=== PATIENT | male | born 1950 | race Caucasian/White ===

== ENCOUNTER 2022-09-10 17:06 | Emergency (ER) | payer MEDICARE, SELFPAY ==
[2022-09-10 17:09] VITALS: BP 198/98; PULSE 62; RESP 16; TEMP 36.6; O2SAT 99
--- NOTE | 2022-09-10 18:02 | XRR_ITS ---
PROCEDURE INFORMATION: Exam: XR Left Shoulder Exam date and time: 09/10/2022 6:10 PM Age: 72 years old Clinical indication: Injury or trauma; Fall; Blunt trauma (contusions or hematomas); Shoulder; Left; Injury date: Tuesday TECHNIQUE: Imaging protocol: Radiologic exam of the Left shoulder. Views: 2 or more views. COMPARISON: No relevant prior studies available. FINDINGS: Bones/joints: Severe degenerative changes left acromioclavicular joint and moderate to severe degenerative changes left glenohumeral joint are noted. Probable osteochondral body is noted superior to the left acromioclavicular joint. There is no acute fracture or dislocation. The acromioclavicular joint alignment is appropriate. The subacromial joint space is well-preserved. The glenohumeral joint is unremarkable. No calcific tendinopathy. The visualized ribs are intact. Lungs: The visualized lung apex is clear. Soft tissues: Normal. XR/XR shoulder LT min 2V* [id number] IMPRESSION: No acute bony abnormality.
--- NOTE | 2022-09-10 18:42 | W.ED.EXTPRO ---
HPI - Extremity Problem General: Chief complaint: Extremity Injury, Upper Stated complaint: left shoulder injury Time Seen by Provider: 09/10/22 18:15 Source: patient History of Present Illness: 72-year-old gentleman who slipped on the ice 4 days ago, landing on point of his left shoulder. He had had some shoulder pain that seem to be improving. This afternoon, he fell again over his dog, and had intense pain over the left shoulder. He is unable to lift his arm under its own power, but can lift his arm with the other hand. It had been hurting him at night prior, but was much worse after this new injury today. No history of diabetes. No fever. He does have a history of high blood pressure. Pain is currently only with movement MD Complaint: extremity pain and joint pain Onset (ago): day(s) Pain Consistency: constant Location: left and upper extremity Radiation: distal Exacerbating factors: range of motion Associated symptoms: Deny arthralgias, chest pain, fever(s), rash or short of breath Context: recent travel Review of Systems Const: Denies: fever(s) ENMT: Denies: throat pain Card: Denies: chest pain or palpitations Resp: Denies: dyspnea, productive cough or non-productive cough GI: Denies: abdominal pain Musc: Reports: extremity pain; Denies: neck pain Skin/Breast: Denies: rash Physical Exam Const: COMMON NORMALS: no acute distress and alert GENERAL APPEARANCE: cooperative; not ill appearing and not frail appearing HENMT: COMMON NORMALS: normocephalic, atraumatic and Normal external nose present HEAD & SCALP: normocephalic and atraumatic NOSE: Normal external nose present Eye: COMMON NORMALS: Equal, round and reactive pupils present and EOMs intact bilaterally PUPIL: Yes Equal, round and reactive pupils present Neck/C-Spine: GENERAL: Yes trachea midline Chest: CHEST: Yes Symmetrical chest wall rise Resp: COMMON NORMALS: normal respiratory effort, No use of accessory muscles and clear to auscultation bilaterally AUSCULTATION: clear to auscultation bilaterally Cardio: COMMON NORMALS: regular rate and regular rhythm RATE: regular rate RHYTHM: regular rhythm GI: COMMON NORMALS: Normal to inspection, nondistended, normoactive bowel sounds present Extremity: NARRATIVE EXTREMITY EXAM: Examination of the left upper extremity reveals no deformity. There are some tenderness over the rotator cuff footprint. Minimal joint line tenderness. There is pain with movement of the shoulder. Less pain with passive range of motion. Positive drop arm test. Pain with internal rotation. Neuro: LUAN COMA SCALE: document [facility] findings Luan coma scale eye opening: Spontaneous [place] coma scale verbal response: Orientated [place] coma scale motor response: Obey commands [place] coma scale total score: 15 SENSORIUM/ORIENTATION: Yes alert SENSORY EXAM: Yes extremities (Normal) Skin: COMMON NORMALS: no wounds Course Vital Signs: Vital signs: Vital Signs Temperature 97.9 F 09/10/22 17:09 Pulse Rate 88 09/10/22 18:59 Respiratory Rate 16 09/10/22 18:59 Blood Pressure 152/78 09/10/22 18:59 Pulse Oximetry 100 09/10/22 18:59 Oxygen Delivery Me thod 09/10/22 17:09 MDM - Extremity (Nontraumatic) Medical Decision Making X-ray reveals no acute bony abnormality. There is significant AC joint arthritis and glenohumeral joint arthritis. This patient likely lost his cuff given his positive drop arm test. To be placed in a sling for comfort and asked to follow-up with his primary care physician back home in [place]. Lab Data Radiology Impressions Shoulder X-Ray 09/10/22 18:02 IMPRESSION: No acute bony abnormality. Discharge Plan Discharge Patient Disposition: Home Clinical Impression: Contusion of left shoulder, Osteoarthritis of left shoulder, Unspecified injury of muscle(s) and tendon(s) of the rotator cuff of left shoulder, initial encounter Condition: Stable Prescriptions: New hydrocodone-acetaminophen 5-325 mg tablet 1 tab PO Q8H PRN (Reason: pain) Qty: 7 0RF Medrol (Jin) 4 mg tablets,dose pack See Rx Instructions .ROUTE .COMPLEX Qty: 21 0RF Rx Instructions: orally per package directions Discharge Orders: Discharge ED (Routine); Ordered 09/10/22 Ordered By: Abelino Fernandez Discharge Diet: Advance as tolerated Discharge Activity: Increase activity as tolerated Patient Instructions: Opioid Safety, Pain Management Activity Restrictions/Additional Instructions: Stay in sling for comfort no longer than 5 days. You most likely have a significant rotator cuff injury. Medications as directed. Follow up with your doctor when you return home. Return for chest pain, shortness of breath, fever, any other concerns. Coding Level of Care Code ED Voice Teacher for Silvino Almanza
[2022-09-10 18:59] VITALS: BP 152/78; PULSE 88; RESP 16; O2SAT 100
== END 2022-09-10 18:59 | disposition home or self-care (01) ==
PROVIDERS: Emergency Provider Emergency Medicine
DX: S40.012A Contusion of left shoulder, initial encounter (principal); M19.012 Primary osteoarthritis, left shoulder; S46.002A Unspecified injury of muscle(s) and tendon(s) of the rotator cuff of left shoulder, initial encounter; W00.0XXA Fall on same level due to ice and snow, initial encounter
CPT/HCPCS: 73030; 99283